=== PATIENT | male | born 1935 | race Caucasian/White ===

== ENCOUNTER 2018-10-16 12:06 | Inpatient (IN) | payer MEDICARE ==
[~2018-10-16] VITALS: Ht 167.6 cm; Wt 64.7 kg
[2018-10-16] MEDS ORDERED: POLYETHYLENE GLYCOL 17 GM PACKET PO PRN (16:00)
[2018-10-16] MEDS ORDERED: PLEASE ENTER HEIGHT AND WEIGHT MC SCH (16:30)
[2018-10-16] MEDS ORDERED: PLEASE ENTER ALLERGIES MC SCH (16:30)
[2018-10-16 17:15] VITALS: BP 150/83
[2018-10-16 19:54] VITALS: BP 111/70
[2018-10-16] MEDS ORDERED: DIAZEPAM 2 MG TABLET PO SCH (21:00)
[2018-10-16] MEDS: RISPERIDONE 1 MG TAB.RAPDIS PO SCH (21:10)
[2018-10-16] MEDS: MELATONIN 3 MG TABLET PO SCH (21:10)
[2018-10-17 06:33] LABS: BASOPHILS # (AUTO) 0.02 x10^3/uL (0-0.1); BASOPHILS % (AUTO) 0 % (0-1); EOSINOPHILS # (AUTO) 0.13 x10^3/uL (0-0.4); EOSINOPHILS % (AUTO) 2 % (1-7); LYMPHOCYTES % (AUTO) 20 % (22-44); MD NO; MEAN CORPUSCULAR HEMOGLOBIN 30.6 pg (27.5-34.5); MEAN CORPUSCULAR HGB CONC 34.6 g/dL (33.2-36.2); MEAN CORPUSCULAR VOLUME 88.6 fL (81-97); MEAN PLATELET VOLUME 9.3 fL (7.4-10.4); MONOCYTES # (AUTO) 0.55 x10^3/uL (0.2-0.8); MONOCYTES % (AUTO) 10 % (2-9); NEUTROPHILS # (AUTO) 3.83 x10^3/uL (1.8-6.8); NEUTROPHILS % (AUTO) 68 % (42-75); PLATELET COUNT 133 x10^3/uL (130-400); RED BLOOD COUNT 4.29 x10^6/uL (4.38-5.82); RED CELL DISTRIBUTION WIDTH 15.2 % (9.4-14.8)
[2018-10-17 06:45] LABS: ALBUMIN 3.6 g/dL (3.4-5.0); ANION GAP 6 mmol/L (5-15); CALCIUM 9.1 mg/dL (8.5-10.1); CHLORIDE 111 mmol/L (98-107)
[2018-10-17 07:11] LABS: ALANINE AMINOTRANSFERASE 23 U/L (12-78); ALKALINE PHOSPHATASE 84 U/L (45-117); BILIRUBIN,TOTAL 0.4 mg/dL (0.2-1.0); CHOL/HDL RATIO 2.8; CHOLESTEROL, TOTAL 106 mg/dL (140-239); CREATININE 0.83 mg/dL (0.7-1.3); FREE T4 (FREE THYROXINE) 0.69 ng/dL (0.76-1.46); HDL CHOL % 36 % (26-37); HDL CHOLESTEROL (DIRECT) 38 mg/dL (40-60); LDL CHOLESTEROL,CALCULATED 39 mg/dL (54-169); TOTAL PROTEIN 5.9 g/dL (6.4-8.2); TRIGLYCERIDES 143 mg/dL (50-200); VLDL CHOLESTEROL 29 mg/dL (0-25)
[2018-10-17 07:21] LABS: FOLATE LEVEL 7.9 ng/mL (3.1-17.5)
[2018-10-17 07:55] VITALS: BP 109/66
[2018-10-17] MEDS: RISPERIDONE 1 MG TAB.RAPDIS PO SCH ×2 (09:49→20:19)
[2018-10-17] MEDS: DIAZEPAM 2 MG TABLET PO SCH (20:18)
[2018-10-17] MEDS: OXCARBAZEPINE 150 MG TABLET PO SCH (20:18)
[2018-10-17] MEDS: MELATONIN 3 MG TABLET PO SCH (20:18)
[2018-10-18] MEDS ORDERED: CARB1TAB4 PO (07:10)
[2018-10-18] MEDS ORDERED: MIRT30TA PO (07:24)
[2018-10-18] MEDS ORDERED: QUET25TA PO (07:24)
[2018-10-18] MEDS ORDERED: QUET100T PO (07:24)
[2018-10-18] MEDS ORDERED: LORA0.5T PO ×2 (07:24)
[2018-10-18] MEDS ORDERED: QUET200T PO (07:24)
[2018-10-18] MEDS ORDERED: QUET50TA PO (07:24)
[2018-10-18] MEDS ORDERED: DOCU50LI24 PO (07:24)
[2018-10-18 07:48] VITALS: BP 120/67
[2018-10-18] MEDS: OXCARBAZEPINE 150 MG TABLET PO SCH ×2 (08:22→20:56)
[2018-10-18] MEDS: DIAZEPAM 2 MG TABLET PO SCH ×3 (08:22→20:56)
[2018-10-18] MEDS: RISPERIDONE 1 MG TAB.RAPDIS PO SCH ×2 (08:23→20:56)
[2018-10-18 08:44] VITALS: BP 143/75
[2018-10-18 16:44] LABS: MICROSCOPIC NOT IND
[2018-10-18] MEDS ORDERED: POTASSIUM CHLORIDE 20 MEQ PACKET PO ONE (18:00)
[2018-10-18 19:27] VITALS: BP 119/65
[2018-10-18] MEDS: MELATONIN 3 MG TABLET PO SCH (20:56)
[2018-10-18] MEDS ORDERED: CARBIDOPA/LEVODOPA 25 MG/100 MG TABLET PO SCH (21:00)
[2018-10-19 07:57] VITALS: BP 126/76
[2018-10-19] MEDS: CARBIDOPA/LEVODOPA 25 MG/100 MG TABLET PO SCH (08:38)
[2018-10-19] MEDS: DIAZEPAM 2 MG TABLET PO SCH ×4 (08:39→21:33)
[2018-10-19] MEDS: OXCARBAZEPINE 150 MG TABLET PO SCH ×2 (08:39→21:33)
[2018-10-19] MEDS: RISPERIDONE 1 MG TAB.RAPDIS PO SCH ×2 (08:39→21:33)
[2018-10-19] MEDS ORDERED: LORazepam 2 MG/ML, 1ML ONE (16:36)
[2018-10-19] MEDS ORDERED: LORazepam 2 MG/ML, 1ML IM ONE (17:00)
[2018-10-19] MEDS ORDERED: OLANZAPINE 10 MG INJ IM PRN ×2 (17:45→18:00)
[2018-10-19 19:41] VITALS: BP 117/82
[2018-10-19] MEDS: MELATONIN 3 MG TABLET PO SCH (21:33)
[2018-10-20 07:34] VITALS: BP 119/75
[2018-10-20] MEDS: CARBIDOPA/LEVODOPA 25 MG/100 MG TABLET PO SCH (09:19)
[2018-10-20] MEDS: DIAZEPAM 2 MG TABLET PO SCH ×3 (09:19→20:59)
[2018-10-20] MEDS: OXCARBAZEPINE 150 MG TABLET PO SCH ×2 (09:19→20:59)
[2018-10-20] MEDS: RISPERIDONE 1 MG TAB.RAPDIS PO SCH (09:19)
[2018-10-20 12:19] VITALS: BP 133/74
[2018-10-20 19:28] VITALS: BP 91/60
[2018-10-20] MEDS: RISPERIDONE 0.5 MG TABLET PO SCH (20:59)
[2018-10-20] MEDS: MELATONIN 3 MG TABLET PO SCH (20:59)
[2018-10-21 07:22] VITALS: BP 129/59
[2018-10-21] MEDS: DIAZEPAM 2 MG TABLET PO SCH ×3 (08:35→20:56)
[2018-10-21] MEDS: CARBIDOPA/LEVODOPA 25 MG/100 MG TABLET PO SCH (08:35)
[2018-10-21] MEDS: RISPERIDONE 0.5 MG TABLET PO SCH (08:35)
[2018-10-21] MEDS: OXCARBAZEPINE 150 MG TABLET PO SCH ×2 (08:36→20:56)
[2018-10-21] MEDS: MELATONIN 3 MG TABLET PO SCH (20:56)
[2018-10-21 22:00] VITALS: BP 117/70
[2018-10-22 07:27] VITALS: BP 115/68
[2018-10-22] MEDS: CARBIDOPA/LEVODOPA 25 MG/100 MG TABLET PO SCH (08:52)
[2018-10-22] MEDS: DIAZEPAM 2 MG TABLET PO SCH ×3 (08:53→20:35)
[2018-10-22] MEDS: OXCARBAZEPINE 150 MG TABLET PO SCH ×2 (08:53→20:35)
[2018-10-22 16:50] VITALS: BP 132/75
[2018-10-22] MEDS ORDERED: ACETAMINOPHEN 325 MG TABLET ONE (17:00)
[2018-10-22] MEDS: ACETAMINOPHEN 325 MG TABLET PO PRN (17:51)
[2018-10-22 18:40] LABS: MEAN CORPUSCULAR HEMOGLOBIN 30.6 pg (27.5-34.5); MEAN CORPUSCULAR HGB CONC 34.3 g/dL (33.2-36.2); MEAN CORPUSCULAR VOLUME 89.4 fL (81-97); MEAN PLATELET VOLUME 9.4 fL (7.4-10.4); PLATELET COUNT 166 x10^3/uL (130-400); RED BLOOD COUNT 4.86 x10^6/uL (4.38-5.82); RED CELL DISTRIBUTION WIDTH 14.9 % (9.4-14.8)
[2018-10-22 18:42] LABS: ALANINE AMINOTRANSFERASE 12 U/L (12-78); ALBUMIN 3.7 g/dL (3.4-5.0); ANION GAP 8 mmol/L (5-15); CALCIUM 8.9 mg/dL (8.5-10.1); CHLORIDE 111 mmol/L (98-107)
[2018-10-22 18:45] LABS: ALKALINE PHOSPHATASE 97 U/L (45-117); BILIRUBIN,TOTAL 0.5 mg/dL (0.2-1.0); CREATININE 1.05 mg/dL (0.7-1.3); TOTAL PROTEIN 6.5 g/dL (6.4-8.2)
[2018-10-22 18:54] LABS: MD YES
[2018-10-22 19:04] LABS: LYMPHS% (MANUAL) 4 % (22-44); MONOS#(MANUAL) 0.88 x10^3/uL (0.3-2.7); MONOS% (MANUAL) 7 % (2-9); SEG#(MANUAL) 11.13 x10^3/uL (1.8-6.8); SEGS% (MANUAL) 89 % (42-75)
[2018-10-22 19:05] LABS: <PLATELET ESTIMATE> ADEQUATE; <PLT MORPHOLOGY> NORMAL PLT MORPH; <RBC MORPHOLOGY> NORMAL
[2018-10-22] MEDS: MELATONIN 3 MG TABLET PO SCH (20:35)
[2018-10-22 20:48] VITALS: BP 135/79
[2018-10-23 06:21] LABS: CULTURE INDICATED? YES; MICROSCOPIC INDICATED
[2018-10-23 07:58] VITALS: BP 117/68
[2018-10-23] MEDS ORDERED: CEFTRIAXONE PMX 1GM/50ML 50 ML IV SCH (08:00)
[2018-10-23] MEDS: DIAZEPAM 2 MG TABLET PO SCH ×3 (08:40→20:08)
[2018-10-23] MEDS: CARBIDOPA/LEVODOPA 25 MG/100 MG TABLET PO SCH (08:40)
[2018-10-23] MEDS: OXCARBAZEPINE 150 MG TABLET PO SCH ×2 (08:40→20:08)
[2018-10-23 19:20] VITALS: BP 135/70
[2018-10-23] MEDS: MELATONIN 3 MG TABLET PO SCH (20:08)
[2018-10-24 07:54] VITALS: BP 160/70
[2018-10-24] MEDS: CARBIDOPA/LEVODOPA 25 MG/100 MG TABLET PO SCH (08:21)
[2018-10-24] MEDS: DIAZEPAM 2 MG TABLET PO SCH ×3 (08:21→20:51)
[2018-10-24] MEDS: OXCARBAZEPINE 150 MG TABLET PO SCH ×2 (08:21→20:51)
[2018-10-24] MEDS: CEFTRIAXONE PMX 1GM/50ML 50 ML IV SCH (09:45)
[2018-10-24 19:42] VITALS: BP 111/59
[2018-10-24] MEDS: MELATONIN 3 MG TABLET PO SCH (20:49)
[2018-10-25] MEDS: CEFTRIAXONE PMX 1GM/50ML 50 ML IV SCH (07:51)
[2018-10-25 07:53] VITALS: BP 107/66
[2018-10-25] MEDS: OXCARBAZEPINE 150 MG TABLET PO SCH ×2 (09:00→20:23)
[2018-10-25] MEDS: DIAZEPAM 2 MG TABLET PO SCH (09:19)
[2018-10-25] MEDS: CARBIDOPA/LEVODOPA 25 MG/100 MG TABLET PO SCH (09:19)
[2018-10-25] MEDS: DIAZEPAM 2 MG TABLET PO PRN ×2 (13:10→20:23)
[2018-10-25 20:16] VITALS: BP 152/85
[2018-10-26] VITALS (8 sets, daily range): BP systolic 96–135; BP diastolic 61–80
[2018-10-26] MEDS: OXCARBAZEPINE 150 MG TABLET PO SCH ×2 (08:05→19:39)
[2018-10-26] MEDS: CEFTRIAXONE PMX 1GM/50ML 50 ML IV SCH (08:05)
[2018-10-26] MEDS: CARBIDOPA/LEVODOPA 25 MG/100 MG TABLET PO SCH (08:05)
[2018-10-26] MEDS: DIAZEPAM 2 MG TABLET PO PRN (08:05)
--- NOTE | 2018-10-26 09:32 | NUR ---
LISA GRAFF - Fall Risk Medications present and NOT receiving anticoagulants. Signed: 10/26/18 at 0923 by Frederick JOSHUA
[2018-10-26] MEDS ORDERED: LORazepam 2 MG/ML, 1ML IM ONE (10:30)
[2018-10-27 07:20] VITALS: BP 122/72
[2018-10-27] MEDS: CEFTRIAXONE PMX 1GM/50ML 50 ML IV SCH (08:04)
[2018-10-27] MEDS: OXCARBAZEPINE 150 MG TABLET PO SCH ×2 (08:44→20:32)
[2018-10-27] MEDS: CARBIDOPA/LEVODOPA 25 MG/100 MG TABLET PO SCH (08:44)
[2018-10-27 13:31] VITALS: BP 117/70
[2018-10-27 19:33] VITALS: BP 150/78
[2018-10-27] MEDS: DIAZEPAM 2 MG TABLET PO PRN (20:32)
[2018-10-28 07:33] VITALS: BP 98/64
[2018-10-28] MEDS: CEFTRIAXONE PMX 1GM/50ML 50 ML IV SCH (07:37)
[2018-10-28] MEDS: OXCARBAZEPINE 150 MG TABLET PO SCH ×2 (08:50→20:24)
[2018-10-28] MEDS: CARBIDOPA/LEVODOPA 25 MG/100 MG TABLET PO SCH (08:50)
[2018-10-28] MEDS: DIAZEPAM 2 MG TABLET PO PRN (13:27)
[2018-10-28 19:15] VITALS: BP 121/85
[2018-10-28] MEDS: MELATONIN 3 MG TABLET PO PRN (20:57)
[2018-10-29 07:48] VITALS: BP 137/76
[2018-10-29] MEDS: CEFTRIAXONE PMX 1GM/50ML 50 ML IV SCH (07:57)
[2018-10-29] MEDS: CARBIDOPA/LEVODOPA 25 MG/100 MG TABLET PO SCH (09:21)
[2018-10-29] MEDS: OXCARBAZEPINE 150 MG TABLET PO SCH ×2 (09:22→20:02)
[2018-10-29] MEDS: MELATONIN 3 MG TABLET PO PRN (20:02)
[2018-10-29] MEDS: ACETAMINOPHEN 325 MG TABLET PO PRN (20:03)
[2018-10-29 20:23] VITALS: BP 99/66
[2018-10-29] MEDS: DIAZEPAM 2 MG TABLET PO PRN (21:27)
[2018-10-30] MEDS: DIAZEPAM 2 MG TABLET PO PRN ×2 (04:56→20:37)
[2018-10-30 08:59] VITALS: BP 104/62
[2018-10-30] MEDS: OXCARBAZEPINE 150 MG TABLET PO SCH ×2 (09:19→20:37)
[2018-10-30] MEDS: CARBIDOPA/LEVODOPA 25 MG/100 MG TABLET PO SCH (09:20)
[2018-10-30 10:57] VITALS: BP 104/62
[2018-10-30] MEDS: MELATONIN 3 MG TABLET PO PRN (20:37)
[2018-10-30 20:56] VITALS: BP 100/52
[2018-10-31 07:52] VITALS: BP 119/67
[2018-10-31] MEDS: CARBIDOPA/LEVODOPA 25 MG/100 MG TABLET PO SCH (08:35)
[2018-10-31] MEDS: DIAZEPAM 2 MG TABLET PO PRN ×2 (08:36→20:38)
[2018-10-31] MEDS: OXCARBAZEPINE 150 MG TABLET PO SCH ×2 (08:36→20:37)
[2018-10-31 19:18] VITALS: BP 110/53
[2018-10-31] MEDS: MELATONIN 3 MG TABLET PO PRN (20:38)
[2018-11-01] MEDS: DIAZEPAM 2 MG TABLET PO PRN ×2 (03:58→14:31)
[2018-11-01 07:20] VITALS: BP 116/72
[2018-11-01] MEDS: CARBIDOPA/LEVODOPA 25 MG/100 MG TABLET PO SCH (08:27)
[2018-11-01] MEDS: OXCARBAZEPINE 150 MG TABLET PO SCH ×2 (08:27→20:10)
[2018-11-01 19:13] VITALS: BP 110/65
[2018-11-02 07:44] VITALS: BP 136/70
[2018-11-02] MEDS: OXCARBAZEPINE 150 MG TABLET PO SCH ×2 (09:24→19:56)
[2018-11-02] MEDS: CARBIDOPA/LEVODOPA 25 MG/100 MG TABLET PO SCH (09:24)
[2018-11-02] MEDS ORDERED: CIPROFLOXACIN OPHTH SOLN 0.3%, 5ML EACHEYE SCH (11:30)
[2018-11-02] MEDS: DIAZEPAM 2 MG TABLET PO PRN ×2 (17:07→19:57)
[2018-11-02] MEDS: CIPROFLOXACIN OPHTH SOLN 0.3%, 5ML EACHEYE SCH (18:03)
[2018-11-02 19:45] VITALS: BP 119/66
[2018-11-02] MEDS: MELATONIN 3 MG TABLET PO PRN (19:56)
[2018-11-02] MEDS ORDERED: LORazepam 2 MG/ML, 1ML ONE (23:12)
[2018-11-02] MEDS ORDERED: LORazepam 2 MG/ML, 1ML IM ONE (23:30)
[2018-11-03 07:15] VITALS: BP 119/69
[2018-11-03] MEDS: CIPROFLOXACIN OPHTH SOLN 0.3%, 5ML EACHEYE SCH (07:25)
[2018-11-03] MEDS: CARBIDOPA/LEVODOPA 25 MG/100 MG TABLET PO SCH (08:07)
[2018-11-03] MEDS: OXCARBAZEPINE 150 MG TABLET PO SCH ×2 (08:08→20:19)
[2018-11-03] MEDS: DIAZEPAM 2 MG TABLET PO PRN ×3 (08:08→20:19)
[2018-11-03] MEDS: ACETAMINOPHEN 325 MG TABLET PO PRN (16:49)
[2018-11-03 19:47] VITALS: BP 150/75
[2018-11-03] MEDS: MELATONIN 3 MG TABLET PO PRN (20:19)
[2018-11-04 07:23] VITALS: BP 147/80
[2018-11-04] MEDS: CARBIDOPA/LEVODOPA 25 MG/100 MG TABLET PO SCH (08:40)
[2018-11-04] MEDS: OXCARBAZEPINE 150 MG TABLET PO SCH ×2 (08:40→20:21)
[2018-11-04] MEDS: DIAZEPAM 2 MG TABLET PO PRN ×2 (12:57→20:20)
[2018-11-04 19:53] VITALS: BP 112/66
[2018-11-04] MEDS: MELATONIN 3 MG TABLET PO PRN (20:20)
[2018-11-05 07:44] VITALS: BP 122/71
[2018-11-05] MEDS: OXCARBAZEPINE 150 MG TABLET PO SCH ×2 (08:20→20:05)
[2018-11-05] MEDS: CARBIDOPA/LEVODOPA 25 MG/100 MG TABLET PO SCH (08:20)
[2018-11-05] MEDS: DIAZEPAM 2 MG TABLET PO PRN (15:17)
[2018-11-05 19:45] VITALS: BP 99/61
[2018-11-05] MEDS: MELATONIN 3 MG TABLET PO PRN (20:05)
[2018-11-05] MEDS: DIAZEPAM 5 MG TABLET PO PRN (22:10)
[2018-11-06 07:08] VITALS: BP 115/71
[2018-11-06] MEDS: CARBIDOPA/LEVODOPA 25 MG/100 MG TABLET PO SCH (08:36)
[2018-11-06] MEDS: OXCARBAZEPINE 150 MG TABLET PO SCH ×2 (08:36→20:39)
[2018-11-06] MEDS: DIAZEPAM 5 MG TABLET PO PRN ×2 (08:37→20:39)
[2018-11-06] MEDS: CIPROFLOXACIN OPHTH SOLN 0.3%, 5ML EACHEYE SCH (13:16)
[2018-11-06 21:09] VITALS: BP 123/75
[2018-11-07 07:46] VITALS: BP 96/62
[2018-11-07] MEDS: OXCARBAZEPINE 150 MG TABLET PO SCH ×2 (08:21→20:13)
[2018-11-07] MEDS: DIAZEPAM 5 MG TABLET PO PRN ×2 (08:21→20:13)
[2018-11-07] MEDS: CARBIDOPA/LEVODOPA 25 MG/100 MG TABLET PO SCH (08:21)
[2018-11-07 19:42] VITALS: BP 105/56
[2018-11-07] MEDS: MELATONIN 3 MG TABLET PO PRN (21:48)
[2018-11-08 07:51] VITALS: BP 107/70
[2018-11-08] MEDS: CARBIDOPA/LEVODOPA 25 MG/100 MG TABLET PO SCH (09:47)
[2018-11-08] MEDS: OXCARBAZEPINE 150 MG TABLET PO SCH ×2 (09:47→21:11)
[2018-11-08] MEDS: DIAZEPAM 5 MG TABLET PO PRN ×2 (12:24→21:11)
[2018-11-08 19:57] VITALS: BP 143/88
[2018-11-09] MEDS: MELATONIN 3 MG TABLET PO PRN ×2 (01:20→20:14)
[2018-11-09 08:03] VITALS: BP 115/70
[2018-11-09] MEDS: CARBIDOPA/LEVODOPA 25 MG/100 MG TABLET PO SCH (08:30)
[2018-11-09] MEDS: OXCARBAZEPINE 150 MG TABLET PO SCH ×2 (08:30→20:14)
[2018-11-09] MEDS: DIAZEPAM 5 MG TABLET PO PRN (20:14)
[2018-11-09 21:10] VITALS: BP 115/67
[2018-11-10 07:11] VITALS: BP 117/79
[2018-11-10] MEDS: CARBIDOPA/LEVODOPA 25 MG/100 MG TABLET PO SCH (08:47)
[2018-11-10] MEDS: OXCARBAZEPINE 150 MG TABLET PO SCH ×3 (08:47→20:35)
[2018-11-10] MEDS: MELATONIN 3 MG TABLET PO PRN (19:49)
[2018-11-10] MEDS: DIAZEPAM 5 MG TABLET PO PRN (19:49)
[2018-11-10] MEDS ORDERED: LORazepam 2 MG/ML, 1ML IM PRN (21:00)
[2018-11-11] VITALS (14 sets, daily range): BP systolic 101–128; BP diastolic 61–90
[2018-11-11] MEDS: CARBIDOPA/LEVODOPA 25 MG/100 MG TABLET PO SCH (09:13)
[2018-11-11] MEDS: OXCARBAZEPINE 150 MG TABLET PO SCH ×2 (09:13→20:27)
[2018-11-11] MEDS: DIAZEPAM 5 MG TABLET PO PRN (09:13)
[2018-11-11] MEDS: MELATONIN 3 MG TABLET PO PRN (20:26)
[2018-11-11] MEDS: DIAZEPAM 2 MG TABLET PO SCH (20:27)
[2018-11-12 07:44] VITALS: BP 135/61
[2018-11-12] MEDS: CARBIDOPA/LEVODOPA 25 MG/100 MG TABLET PO SCH (09:08)
[2018-11-12] MEDS: OXCARBAZEPINE 150 MG TABLET PO SCH ×2 (09:08→20:01)
[2018-11-12] MEDS: DIAZEPAM 2 MG TABLET PO SCH ×3 (09:08→20:01)
[2018-11-12 19:44] VITALS: BP 124/67
[2018-11-12] MEDS: MELATONIN 3 MG TABLET PO PRN (20:01)
[2018-11-13 07:57] VITALS: BP 116/68
[2018-11-13] MEDS: OXCARBAZEPINE 150 MG TABLET PO SCH ×2 (08:57→20:58)
[2018-11-13] MEDS: CARBIDOPA/LEVODOPA 25 MG/100 MG TABLET PO SCH (08:57)
[2018-11-13] MEDS: DIAZEPAM 2 MG TABLET PO SCH ×3 (08:57→20:58)
[2018-11-13] MEDS ORDERED: CIPR2.5D EACHEYE (15:38)
[2018-11-13] MEDS ORDERED: MELA3TAB2 PO (15:38)
[2018-11-13] MEDS ORDERED: CARB1TAB22 PO (15:38)
[2018-11-13] MEDS ORDERED: OXCA150T18 PO (15:38)
[2018-11-13] MEDS ORDERED: DIAZ2TAB3 PO (15:38)
[2018-11-13 19:25] VITALS: BP 112/65
[2018-11-14] MEDS: MELATONIN 3 MG TABLET PO PRN (02:12)
[2018-11-14] MEDS: CIPROFLOXACIN OPHTH SOLN 0.3%, 5ML EACHEYE SCH (06:36)
[2018-11-14 07:45] VITALS: BP 106/72
[2018-11-14] MEDS: CARBIDOPA/LEVODOPA 25 MG/100 MG TABLET PO SCH (08:20)
[2018-11-14] MEDS: OXCARBAZEPINE 150 MG TABLET PO SCH (08:20)
[2018-11-14] MEDS: DIAZEPAM 2 MG TABLET PO SCH (08:20)
== END 2018-11-14 15:15 | disposition hospice, inpatient (51) | DRG 56 ==
LOC: 3E 15:11
PROVIDERS: ADMIT Psychiatry & Neurology Psychosomatic Medicine; ATTEND Psychiatry & Neurology Psychosomatic Medicine
DX: G31.83 Neurocognitive disorder with Lewy bodies (principal); J15.0 Pneumonia due to Klebsiella pneumoniae; F01.51 Vascular dementia, unspecified severity, with behavioral disturbance; N39.0 Urinary tract infection, site not specified; F02.81 Dementia in other diseases classified elsewhere, unspecified severity, with behavioral disturbance; E87.6 Hypokalemia; F41.9 Anxiety disorder, unspecified; Z66 Do not resuscitate; H10.33 Unspecified acute conjunctivitis, bilateral; R32 Unspecified urinary incontinence; F41.1 Generalized anxiety disorder; R63.4 Abnormal weight loss; Z68.23 Body mass index [BMI] 23.0-23.9, adult; Z87.440 Personal history of urinary (tract) infections; Z95.0 Presence of cardiac pacemaker; Z83.3 Family history of diabetes mellitus; Z82.49 Family history of ischemic heart disease and other diseases of the circulatory system; Z87.891 Personal history of nicotine dependence
CPT/HCPCS: 36415; 70450; 71045; 80053; 80061; 81001; 81003; 82607; 82746; 84439; 84443; 85025; 86480; 86592; 87070; 87077; 87086; 87186; 87205; 93005; J0696; 92523-GN; J2060

== ENCOUNTER 2018-10-16 14:38 | Emergency (ER) | payer MEDICARE ==
--- NOTE | 2018-10-16 15:46 | NUR ---
REGISTERED IN ERROR
== END 2018-10-16 15:52 | disposition home or self-care (01) ==
LOC: ED 14:46
DX: Z02.9 Encounter for administrative examinations, unspecified (principal)